=== PATIENT | female | born 1985 | race Caucasian/White ===

== ENCOUNTER 2017-07-19 08:32 | Emergency (ER) | payer MEDICAID ==
--- NOTE | 2017-07-19 09:10 | Emergency Department Report ---
ED ENT HPI - General Chief complaint: Dental/Oral Stated complaint: TOOTH ABCESS- known and recurrent; did not follow up Time Seen by Provider: 07/19/17 09:09 Source: patient, RN notes reviewed Mode of arrival: Ambulatory Limitations: No Limitations - History of Present Illness MD complaint: tooth pain -: Gradual Location: other (r upper) Severity: moderate Quality: sharp, dull Consistency: constant Improves with: none Worsens with: eating Context- Dental: poor dental care Associated Symptoms: gum swelling, toothache. denies: fever, cough, pain with swallowing, sore throat, tinnitus, hearing loss, discharge from ear, rhinorrhea - Related Data Previous Rx's Medication Instructions Recorded Last Taken Type Clindamycin [Clindamycin CAP] 300 mg PO Q6H #40 capsule 07/19/17 Unknown Rx traMADol [Ultram] 50 mg PO Q6HR PRN #20 tablet 07/19/17 Unknown Rx Allergies Allergy/AdvReac Type Severity Reaction Status Date / Time Penicillins Allergy Itching Verified 07/19/17 09:19 ED Dental HPI - General Chief complaint: Dental/Oral Stated complaint: TOOTH ABCESS Time Seen by Provider: 07/19/17 09:09 Source: patient Mode of arrival: Ambulatory Limitations: No Limitations - Related Data Previous Rx's Medication Instructions Recorded Last Taken Type Clindamycin [Clindamycin CAP] 300 mg PO Q6H #40 capsule 07/19/17 Unknown Rx traMADol [Ultram] 50 mg PO Q6HR PRN #20 tablet 07/19/17 Unknown Rx Allergies Allergy/AdvReac Type Severity Reaction Status Date / Time Penicillins Allergy Itching Verified 07/19/17 09:19 ED Review of Systems ROS: Stated complaint: TOOTH ABCESS Other details as noted in HPI Comment: All other systems reviewed and negative ENT: dental pain ED Past Medical Hx - Past Medical History Hx Hypertension: Yes (with ) - Surgical History Additional Surgical History: 2005 - Social History Smoking Status: Never Smoker Substance Use Type: None - Medications Home Medications: Home Medications Medication Instructions Recorded Confirmed Last Taken Type Clindamycin [Clindamycin CAP] 300 mg PO Q6H #40 capsule 07/19/17 Unknown Rx traMADol [Ultram] 50 mg PO Q6HR PRN #20 tablet 07/19/17 Unknown Rx ED Physical Exam - General Limitations: No Limitations General appearance: alert - Head Head exam: Present: atraumatic - Eye Eye exam: Present: PERRL - ENT ENT exam: Present: mucous membranes moist - Expanded ENT Exam Expanded Mouth exam: Present: tongue normal. Absent: normal external inspection, drooling, trismus, muffled voice, tongue elevation Teeth exam: Present: dental caries, dental tenderness #, other (NO ludwigs; no peritons. abscess; no drooling; no trism.; no fever; taking p) 1 - Dental Tenderness, Other (caries) Throat exam: Positive: normal inspection. Negative: tonsillar erythema, tonsillomegaly, tonsillar exudate, R peritonsillar mass, L peritonsillar mass - Neck Neck exam: Present: normal inspection. Absent: tenderness, meningismus - Respiratory Respiratory exam: Present: normal lung sounds bilaterally - Cardiovascular Cardiovascular Exam: Present: regular rate, normal rhythm, tachycardia (90 on exam) - GI/Abdominal GI/Abdominal exam: Present: soft - Rectal Rectal exam: Present: deferred - Extremities Exam Extremities exam: Present: normal inspection - Back Exam Back exam: Present: normal inspection - Neurological Exam Neurological exam: Present: alert, oriented X3 - Psychiatric Psychiatric exam: Present: normal affect, normal mood - Skin Skin exam: Present: warm, dry, intact ED Course Vital Signs 07/19/17 09:01 Temperature 99.3 F Pulse Rate 104 H Respiratory 20 Rate Blood Pressure 163/101 O2 Sat by Pulse 98 Oximetry ED Medical Decision Making - Lab Data Result diagrams: 07/19/17 09:20 07/19/17 09:20 - Radiology Data Radiology results: report reviewed - Medical Decision Making see note - Differential Diagnosis ro sinus abscess from caries Critical care attestation.: If time is entered above; I have spent that time in minutes in the direct care of this critically ill patient, excluding procedure time. ED Disposition Clinical Impression: Dental caries, Dental abscess, Obesity, Elevated blood pressure reading Disposition: TO HOME OR SELFCARE Is pt being admited?: No Does the pt Need Aspirin: No Condition: Stable Instructions: Dental Abscess (ED), Dental Caries (ED) Additional Instructions: you need to see dmd betsy meds as ordered today monitor blood pressure low salt diet Prescriptions: Clindamycin [Clindamycin CAP] 300 mg PO Q6H #40 capsule traMADol [Ultram] 50 mg PO Q6HR PRN #20 tablet PRN Reason: Pain Referrals: PRIMARY CARE, [Primary Care Provider] - 3-5 Days [facility] [Outside] - 3-5 Days [facility] [Outside] - 3-5 Days [facility] [Outside] - 3-5 Days Time of Disposition: 10:12
[2017-07-19] MEDS ORDERED: PERCOCET 5/325 PO ONE (09:14)
[2017-07-19] MEDS ORDERED: CLEOCIN 300 MG/50 mL 300 MG/50 ML BAG IV ONE (09:15)
[2017-07-19] MEDS ORDERED: NACL 0.9% 1000 ML 1,000 ML IV ONE (09:16)
[2017-07-19 09:40] LABS: Basophils % (Auto) 0.5 % (0.0-1.8); Eosinophils % (Auto) 0.3 % (0.0-4.3); Hematocrit 39.1 % (30.3-42.9); Mean Corpuscular HGB Conc 33 % (30-34); Mean Corpuscular Hemoglobin 30 pg (28-32); Mean Corpuscular Volume 90 fl (79-97); Platelet Count 253 K/mm3 (140-440); Red Blood Count 4.34 M/mm3 (3.65-5.03); Red Cell Distribution Width 14.5 % (13.2-15.2); White Blood Count 12.1 K/mm3 (4.5-11.0)
[2017-07-19 09:43] LABS: Alanine Aminotransferase 9 units/L (7-56); Albumin 3.6 g/dL (3.9-5); Albumin/Globulin Ratio 0.9 %; Alkaline Phosphatase 68 units/L (35-129); Anion Gap 14 mmol/L; BUN/Creatinine Ratio 11; Blood Urea Nitrogen 8 mg/dL (7-17); Calcium 8.7 mg/dL (8.4-10.2); Carbon Dioxide 26 mmol/L (22-30); Glucose 103 mg/dL (65-100); Sodium 136 mmol/L (137-145); Total Protein 7.8 g/dL (6.3-8.2)
--- NOTE | 2017-07-19 10:08 | Cat Scan Report ---
CT FACIAL BONES WITHOUT CONTRAST: 07/19/17 08:32:00 CLINICAL: Right upper dental abscess. TECHNIQUE: Volumetric acquisition and 1.25 mm axial scan reconstructions without contrast. FINDINGS: Moderate inflammatory stranding in the right maxillary soft tissues but no soft tissue abscess identified. No erosive changes in the bones. There is a large caries in the right upper second molar tooth. Caries are also identified in the left second and third upper molar teeth. Moderate right maxillary sinus mucoperiosteal thickening but no air-fluid level. The rest of the sinuses are clear. Old right maxillary facial fracture with thickening and deformity of the anterior wall of the right maxillary sinus. Shotty lymph nodes in the neck and no lymphadenopathy. IMPRESSION: Right maxillary inflammatory changes but no soft tissue abscess and no signs of osteomyelitis. Dental caries.
[2017-07-19 11:43] VITALS: BP 146/44
== END 2017-07-19 12:02 | disposition home or self-care (01) ==
LOC: ED 08:32
DX: K04.7 Periapical abscess without sinus (principal); K02.9 Dental caries, unspecified; I10 Essential (primary) hypertension; Z88.0 Allergy status to penicillin; E66.9 Obesity, unspecified
CPT/HCPCS: 36415; 70486; 80053; 85025; 96361; 96365; 99284; J7030

== ENCOUNTER 2021-05-24 12:27 | Emergency (ER) | payer MEDICAID ==
--- NOTE | 2021-05-24 12:32 | Emergency Department Report ---
ED CPR HPI - General Chief Complaint: Cardiac Arrest/CPR Stated Complaint: CARDIAC ARREST Time Seen by Provider: 05/24/21 12:32 Source: family, EMS (Verbal report received from emergency medical services. EMS documentation not available at time of chart dictation ), RN notes reviewed, old records reviewed Mode of arrival: Stretcher Limitations: Altered Mental Status, Physical Limitation - History of Present Illness Initial Comments: The patient was evaluated in the emergency department for symptoms described in the history of present illness. He/she was evaluated in the context of the global COVID-19 pandemic, which necessitated consideration that the patient might be at risk for infection with the virus that causes COVID-19. Institutional protocols and algorithms that pertain to the evaluation of patients at risk for COVID-19 are in a state of rapid change based on information released by regulatory bodies including the CDC and federal and state organizations. These policies and algorithms were followed during the patient's care in the emergency department. Please note that these policies, procedures and recommendations changed on a rapid basis. The patient is a 35-year-old female, who is morbidly obese, who presents to the hospital by EMS with an [id number] nontraumatic cardiac arrest. Patient arrives receiving active CPR, with a GCS of 3T, and Randy airway in place. History entirely obtained from EMS. EMS reports that they responded to a call of an unresponsive person in the car. EMS reports that patient's family initiated CPR. EMS reports that upon their arrival, patient has a GCS of 3, they were not able to intubate, and placed a Randy airway. Her initial rhythm with EMS is asystole. EMS reports that patient is to morbidly obese to accommodate any of their IO lines. They also report that patient's peripheral IVs "kept blowing." Upon arrival to this emergency room, the patient has been pulseless for over 20 minutes. Her pupils are dilated and do not react to light. The patient is also found to be in asystole. CPR continued. Unfortunately, pulses could not be reobtained. Resuscitation efforts were terminated secondary to medical futility. The patient's sister and her daughter were subsequently informed. -: minute(s) Initial Findings in the Field: no pulse, other rhythm (Asystole) Treatments Prior to Arrival: other airway device, chest compressions - Related Data Previous Rx's Medication Instructions Recorded Last Taken Type Clindamycin [Clindamycin CAP] 300 mg PO Q6H #40 capsule 07/19/17 Unknown Rx traMADoL [Ultram] 50 mg PO Q6HR PRN #20 tablet 07/19/17 Unknown Rx Allergies Allergy/AdvReac Type Severity Reaction Status Date / Time Penicillins Allergy Itching Verified 07/19/17 09:19 ED Review of Systems ROS: Stated complaint: CARDIAC ARREST Other details as noted in HPI Comment: Unobtainable due to pts medical conditions ED Past Medical Hx - Past Medical History Hx Hypertension: Yes (with ) - Surgical History Additional Surgical History: 2005 - Social History Smoking Status: Never Smoker Substance Use Type: None - Medications Home Medications: Home Medications Medication Instructions Recorded Confirmed Last Taken Type Clindamycin [Clindamycin CAP] 300 mg PO Q6H #40 capsule 07/19/17 Unknown Rx traMADoL [Ultram] 50 mg PO Q6HR PRN #20 tablet 07/19/17 Unknown Rx ED Physical Exam - General Limitations: Altered Mental Status, Physical Limitation General appearance: obtunded - Head Head exam: Present: atraumatic, normocephalic - Eye Eye exam: Absent: normal appearance (Dilated and do not react to light) - ENT ENT exam: Present: normal exam (Randy airway noted in oropharynx), mucous m embranes moist - Neck Neck exam: Present: normal inspection - Respiratory Respiratory exam: Absent: normal lung sounds bilaterally (The patient is not breathing) - Cardiovascular Cardiovascular Exam: Present: other (The patient is pulseless). Absent: regular rate, normal rhythm - GI/Abdominal GI/Abdominal exam: Present: soft - Extremities Exam Extremities exam: Absent: normal inspection (Mottled extremities) - Back Exam Back exam: Present: normal inspection - Neurological Exam Neurological exam: Present: altered (Nonverbal, GCS of 3) - Psychiatric Psychiatric exam: Present: other (Nonverbal) - Skin Skin exam: Present: warm, dry. Absent: intact, normal color ED Medical Decision Making - Medical Decision Making Differential diagnosis, including but not limited to: Acute coronary syndrome, pulmonary embolism, pulmonary hypertension, aortic dissection, cardiac tamponade, hemorrhage Critical care attestation.: If time is entered above; I have spent that time in minutes in the direct care of this critically ill patient, excluding procedure time. ED Disposition Clinical Impression: Cardiac arrest Disposition: 20 Is pt being admited?: No Does the pt Need Aspirin: No Condition: Undetermined
== END 2021-05-24 13:00 ==
LOC: ED 12:27
DX: I46.9 Cardiac arrest, cause unspecified (principal); I10 Essential (primary) hypertension; Z98.890 Other specified postprocedural states; Z88.0 Allergy status to penicillin
CPT/HCPCS: 92950; 99285